=== PATIENT | male | born 2000 | race Caucasian/White ===

== ENCOUNTER 2021-01-04 16:41 | Emergency (ER) | payer SELFPAY ==
[~2021-01-04] VITALS: Ht 175.3 cm; Wt 60.0 kg
[2021-01-04 17:41] LABS: BILIRUBIN,URINE SMALL (NEG); CLARITY,URINE CLEAR; COLOR,URINE AMBER; NITRITE,URINE NEGATIVE (NEG); PH,URINE 6.5 (<5.0-8.0); PROTEIN,URINE 100 mg/dL (NEG-TRACE)
[2021-01-04] MEDS ORDERED: MORPHINE SULFATE 2 MG/ML VIAL. IV PRN (17:45)
[2021-01-04 17:49] LABS: BACTERIA,URINE 0 /HPF (0-FEW)
--- NOTE | 2021-01-04 17:56 | PHYS DOC ---
Past Medical History Additional Past Medical Histor: kidney stones (ANGELA RODRIGUEZ MD) Past Surgical History: No Surgical History (ANGELA RODRIGUEZ MD) Alcohol Use: None Drug Use: None (ANGELA RODRIGUEZ MD) General Adult EDM: Chief Complaint: ABDOMINAL PAIN HPI: HPI: 20-year-old male presenting the emergency department today with left-sided flank pain. He describes a sharp shooting pain that is been there for about 3 days. It is nonradiating without alleviating factors. He has had some hematuria. He denies nausea or vomiting. He reports normal bowel movements. He has a history of kidney stones in the past. Review of systems negative for nausea vomiting diaphoresis fevers chills. All other review of systems negative. ED course: 20-year-old male presented emerge department today with left-sided flank pain. Patient has mild left-sided abdominal pain with left-sided CVA tenderness. I was able to evaluate the patient and initiate blood work and imaging just prior to the end of my shift for the oncoming doctor to take over care. Patient was signed out with plans on following up on imaging blood work and reexamination for final disposition. (ANGELA RODRIGUEZ MD) Heart Score: C/O Chest Pain: No Risk Factors: Risk Factors: DM, Current or recent (<one month) smoker, HTN, HLP, family history of CAD, obesity. Risk Scores: Score 0 - 3: 2.5% MACE over next 6 weeks - Discharge Home Score 4 - 6: 20.3% MACE over next 6 weeks - Admit for Clinical Observation Score 7 - 10: 72.7% MACE over next 6 weeks - Early Invasive Strategies (ANGELA RODRIGUEZ MD) Current Medications: Current Medications Medications (Trade) Dose Ordered Sig/Alfredito Start Time Stop Time Status Last Admin Dose Admin Morphine Sulfate (Morphine Sulfate) 2 mg PRN Q1HR PRN 01/04/21 17:45 UNV (ANGELA RODRIGUEZ MD) Allergies: Allergies: Allergies Coded Allergies Type Severity Reaction Last Updated Verified No Known Drug Allergies 01/04/21 No (ANGELA RODRIGUEZ MD) Physical Exam: PE: Constitutional: Well developed, well nourished, no acute distress, non-toxic appearance. [] HENT: Normocephalic, atraumatic, bilateral external ears normal, oropharynx moist, no oral exudates, nose normal. [] Eyes: PERRLA, EOMI, conjunctiva normal, no discharge. [] Neck: Normal range of motion, no tenderness, supple, no stridor. [] Cardiovascular:Heart rate regular rhythm, no murmur [] Lungs & Thorax: Bilateral breath sounds clear to auscultation [] Abdomen: Bowel sounds normal, soft, mildly tender on the left without rebound tenderness or guarding. no masses, no pulsatile masses. [] Negative Roland's point. Negative Gonzalez sign. Skin: Warm, dry, no erythema, no rash. [] Back: left cva tenderness present. No tenderness midline. Extremities: No tenderness, no cyanosis, no clubbing, ROM intact, no edema. [] Neurologic: Alert and oriented X 3, normal motor function, normal sensory function, no focal deficits noted. [] Psychologic: Affect normal, judgement normal, mood normal. [] (ANGELA RODRIGUEZ MD) Current Patient Data: Vital Signs: Vital Signs Date Time Temp Pulse Resp B/P (MAP) Pulse Ox O2 Delivery O2 Flow Rate FiO2 01/04/21 17:28 98.3 105 18 116/62 (80) 97 Room Air 98.3 (ANGELA RODRIGUEZ MD) EKG: EKG: [] (ANGELA RODRIGUEZ MD) Radiology/Procedures: Radiology/Procedures: [] (ANGELA RODRIGUEZ MD) Course & Med Decision Making: Course & Med Decision Making Pertinent Labs and Imaging studies reviewed. (See chart for details) [] (ANGELA RODRIGUEZ MD) Course & Med Decision Making I assumed care o f the patient from Dr. Rodriguez at 1800. Briefly this is a 20-year-old male presenting the emergency department with concern for new onset renal stone given the patient having new onset of left-sided flank pain radiating to the left groin. Urine did demonstrate some blood in the urine and a CT scan was ordered. However I was told that the initial CT scan appears to have been inadvertently canceled through a technical error. I want to go out talk to the patient and he is stating that this time that he does not want to stay. Patient states that he previously been seen at [facility] and he was concerned that there was a 5 mm left-sided stone which they told him he needed to return for to have procedure to have it removed. Upon hearing this I explained to the patient that this could demonstrate a life-threatening illness which could threaten his left kidney secondary to obstructing stone and that the best course of action would be to obtain a CT scan and possible urology consultation. Patient refused and states that he wants to leave AGAINST MEDICAL ADVICE. Counseled the patient stating that this time I could not guarantee his safety and that he is at risk for significant injury or mortality. Patient verbalized understanding and still stated that he wished to leave AGAINST MEDICAL ADVICE (ALBERTA MENDIOLA MD) Dragon Disclaimer: Dragon Disclaimer: This electronic medical record was generated, in whole or in part, using a voice recognition dictation system. (ANGELA RODRIGUEZ MD) Departure Departure Disposition: 07 LEFT AGAINST MEDICAL ADVICE Referrals: NO PCP (PCP) ANGELA RODRIGUEZ MD Jan 04, 2021 17:56 ALBERTA MENDIOLA MD Jan 04, 2021 20:33
[2021-01-04 18:18] LABS: BASO # 0.1 x10^3/uL (0.0-0.2); BASO % 1 % (0-3); EOS # 0.1 x10^3/uL (0.0-0.7); EOS % 1 % (0-3); HEMATOCRIT 40.2 % (39.0-53.0); LYMPH # 3.7 x10^3/uL (1.0-4.8); LYMPH % 38 % (24-48); MEAN CORPUSCULAR HEMOGLOBIN 30 pg (25-35); MEAN CORPUSCULAR HGB CONC 35 g/dL (31-37); MEAN CORPUSCULAR VOLUME 85 fL (79-100); MONO # 0.9 x10^3/uL (0.0-1.1); MONO % 10 % (0-9); NEUT # 4.8 x10^3/uL (1.8-7.7); NEUT % 50 % (31-73); PLATELET COUNT 235 x10^3/uL (140-400); RED BLOOD COUNT 4.72 x10^6/uL (4.30-5.70); RED CELL DISTRIBUTION WIDTH 13.5 % (11.5-14.5); WHITE BLOOD COUNT 9.6 x10^3/uL (4.0-11.0)
[2021-01-04 18:27] LABS: CREATININE 1.1 mg/dL (0.7-1.3); GFR 84.5; POTASSIUM 3.6 mmol/L (3.5-5.1)
[2021-01-04 18:33] LABS: ALBUMIN 4.7 g/dL (3.4-5.0); DIRECT BILIRUBIN 0.2 mg/dL (0.0-0.2); TOTAL BILIRUBIN 0.9 mg/dL (0.2-1.0); TOTAL PROTEIN 7.7 g/dL (6.4-8.2)
[2021-01-04] MEDS ORDERED: MORPHINE SULFATE 4 MG/ML VIAL. IV ONE (18:45)
[2021-01-04 20:00] VITALS: BP 118/80
== END 2021-01-04 20:34 | disposition left against medical advice (07) ==
LOC: ER 16:41
DX: R10.9 Unspecified abdominal pain (principal); Z87.442 Personal history of urinary calculi
CPT/HCPCS: 36415; 80048; 80076; 81001; 83690; 85025; 87086; 96374; 99284; J2270

== ENCOUNTER 2021-03-11 03:15 | Emergency (ER) | payer SELFPAY ==
[~2021-03-11] VITALS: Ht 175.3 cm; Wt 54.5 kg
[2021-03-11 03:55] LABS: BILIRUBIN,URINE NEGATIVE (NEG); CLARITY,URINE CLEAR; COLOR,URINE YELLOW; NITRITE,URINE NEGATIVE (NEG); PH,URINE 6.5 (<5.0-8.0); PROTEIN,URINE NEGATIVE (NEG-TRACE)
[2021-03-11] MEDS ORDERED: KETOROLAC 30 MG/ML VIAL. IVP ONE (04:00)
[2021-03-11 04:04] LABS: BACTERIA,URINE 0 /HPF (0-FEW); RBC,URINE OCC /HPF (0-2); WBC,URINE >40 /HPF (0-4)
[2021-03-11 04:14] LABS: HEMATOCRIT 38.2 % (39.0-53.0); HEMOGLOBIN 12.7 g/dL (13.0-17.5); RED BLOOD COUNT 4.33 x10^6/uL (4.30-5.70); RED CELL DISTRIBUTION WIDTH 13.5 % (11.5-14.5)
--- NOTE | 2021-03-11 04:21 | PHYS DOC ---
Past Medical History Past Medical History: Kidney Stone Additional Past Medical Histor: kidney stones Past Surgical History: No Surgical History Smoking Status: Current Every Day Smoker Alcohol Use: None Drug Use: None General Adult EDM: Chief Complaint: FLANK PAIN HPI: HPI: Patient is a 21 year old male presents with a chief complaint of left flank pain. Patient states flank pain started several hours ago. Patient states he has associated urinary urgency and nausea. Denies history of kidney stones. He rates pain 10/10. Review of Systems: Review of Systems: Review of systems: Constitutional symptoms- No fever, no chills. Eyes- No Discharge, No Visual Loss Respiratory symptoms- No shortness of breath, No wheezing, No Dyspnea on Exertion Cardiovascular Systems; No chest pain, No Palpitations, No syncope Gastrointestinal symptoms: NO abdominal pain, no nausea, no vomiting or yaz rrhea. Genitourinary symptoms: No dysuria. Positive urinary urgency positive flank pain Musculoskeletal symptoms: No back pain No extremity pain. NEUROLOGICAL Symptoms: No headache, no generalized weakness; No focal Weakness Skin: No rash. Heart Score: C/O Chest Pain: N/A Risk Factors: Risk Factors: DM, Current or recent (<one month) smoker, HTN, HLP, family history of CAD, obesity. Risk Scores: Score 0 - 3: 2.5% MACE over next 6 weeks - Discharge Home Score 4 - 6: 20.3% MACE over next 6 weeks - Admit for Clinical Observation Score 7 - 10: 72.7% MACE over next 6 weeks - Early Invasive Strategies Current Medications: Current Medications Medications (Trade) Dose Ordered Sig/[facility] Start Time Stop Time Status Last Admin Dose Admin Ketorolac Tromethamine (Toradol 30mg Vial) 30 mg 1X ONCE 03/11/21 04:00 03/11/21 04:01 DC 03/11/21 03:57 30 MG Allergies: Allergies: Allergies Coded Allergies Type Severity Reaction Last Updated Verified No Known Drug Allergies 01/04/21 No Physical Exam: PE: General: alert, no acute distress. Skin: warm, dry and intact. HENT: bilateral external ears normal, oropharynx moist, nose normal. Head:: Normocephalic, atraumatic. Neck: Trachea midline. Eyes: EOMI, Normal conjunctiva, No drainage CARDIOVASCULAR: Regular rate and rhythm RESPIRATORY: No respiratory distress Back: Full range of motion. Skin: Warm, dry, no erythema, no rash. MUSCULOSKELETAL: Full range of motion of bilateral upper and lower extremities. GASTROINTESTINAL: Abdomen soft without rebound or guarding. NEUROLOGICAL: Alert and noted to person, place and time. No neurological deficits observed Psychiatric: Cooperative. Anxious Current Patient Data: Labs: Laboratory Tests Test 03/11/21 03:33 Urine Collection Type Unknown Urine Color Yellow Urine Clarity Clear Urine pH 6.5 (<5.0-8.0) Urine Specific [place] >=1.030 (1.000-1.030) Urine Protein Negative mg/dL (NEG-TRACE) Urine Glucose (UA) Negative mg/dL (NEG) Urine Ketones (Stick) Trace mg/dL (NEG) Urine Blood Negative (NEG) Urine Nitrite Negative (NEG) Urine Bilirubin Negative (NEG) Urine Urobilinogen Dipstick 1.0 mg/dL (0.2 mg/dL) Urine Leukocyte Esterase Moderate (NEG) Urine RBC Occ /HPF (0-2) Urine WBC >40 /HPF (0-4) Urine Squamous Epithelial Cells Mod /LPF Urine Bacteria 0 /HPF (0-FEW) Urine Mucus Marked /LPF Vital Signs: Vital Signs Date Time Temp Pulse Resp B/P (MAP) Pulse Ox O2 Delivery O2 Flow Rate FiO2 03/11/21 03:43 97.7 71 18 138/75 (96) 100 Room Air 97.7 EKG: EKG: [] Radiology/Procedures: Radiology/Procedures: [] Impression: EXAMINATION: CT ABDOMEN+PELVIS WO CLINICAL HISTORY: Left flank pain TECHNIQUE: Non-IV contrast imaging of the abdomen and pelvis was performed using standard technique, scanning from just above the dome of the diaphragm to the symphysis pubis. Unenhanced imaging is limited for the evaluation of some intra-abdominal and pelvic pathology. CT Dose Reduction Employed: One or more of the following individualized dose reduction techniques were utilized for this examination: 1. Automated exposure control 2. Adjustment of the mA and/or kV according to patient size 3. Use of iterative reconstruction technique. COMPARISON: None FINDINGS: Partially visualized heart and lungs unremarkable. Liver, gallbladder, pancreas, spleen, and adrenal glands unremarkable. 9 mm left renal calculus. No additional urinary calculi visualized. No evidence of obstructive uropathy. Decompressed urinary bladder suboptimally evaluated. No dilated bowel. Partially visualized nondilated appendix. No abdominal aortic or iliac artery aneurysm. No evidence of acute osseous abnormality. IMPRESSION: 9 mm left renal calculus without definitive evidence of obstructive uropathy on somewhat limited evaluation in patient with thin body habitus and lack of intravenous contrast. Electronically signed by: Pb Morin DO (03/11/2021 5:45 AM) [facility] Course & Med Decision Making: Course & Med Decision Making Pertinent Labs and Imaging studies reviewed. (See chart for details) [] Patient was evaluated for chief complaint. Work-up consisted of laboratory analysis and radiologic imaging. Patient's urine consistent with a urinary tract infection greater than 40 WBCs and positive LEs. Pain treated with Toradol. Nausea treated with Zofran. Patient received IV fluids and a gram of Rocephin. Dragon Disclaimer: Badge Disclaimer: This electronic medical record was generated, in whole or in part, using a voice recognition dictation system. Departure Departure Impression: Primary Impression: Flank pain Additional Impressions: Nausea UTI (urinary tract infection) Renal colic on left side Condition: STABLE Referrals: NO PCP (PCP) Patient Instructions: Flank Pain, Urinary Tract Infection Scripts Ciprofloxacin Hcl (CIPRO) 500 Mg Tablet 1 TAB PO BID for 10 Days, #20 TAB 0 Refills Prov: RASHARD FRANCO DO 03/11/21 Phenazopyridine Hcl (PYRIDIUM) 200 Mg Tablet 1 TAB PO TID for urinary discomfort for 2 Days, #6 TAB 0 Refills Prov: RASHARD FRANCO DO 03/11/21 RASHARD FRANCO DO Mar 11, 2021 04:21
[2021-03-11 04:29] LABS: CALCIUM 8.6 mg/dL (8.5-10.1); CREATININE 1.2 mg/dL (0.7-1.3); GFR 75.7
[2021-03-11 04:33] LABS: ALBUMIN 3.9 g/dL (3.4-5.0); ALBUMIN/GLOBULIN RATIO 1.3 (1.0-1.7); TOTAL BILIRUBIN 0.3 mg/dL (0.2-1.0); TOTAL PROTEIN 6.8 g/dL (6.4-8.2)
[2021-03-11] MEDS ORDERED: cefTRIAXone IV Push 1 GM VIAL. IVP ONE (05:00)
--- NOTE | 2021-03-11 05:48 | RAD ---
EXAMINATION: CT ABDOMEN+PELVIS WO CLINICAL HISTORY: Left flank pain TECHNIQUE: Non-IV contrast imaging of the abdomen and pelvis was performed using standard technique, scanning from just above the dome of the diaphragm to the symphysis pubis. Unenhanced imaging is cedeno ited for the evaluation of some intra-abdominal and pelvic pathology. CT Dose Reduction Employed: One or more of the following individualized dose reduction techniques wer e utilized for this examination: 1. Automated exposure control 2. Adjustment of the mA and/or kV ac cording to patient size 3. Use of iterative reconstruction technique. COMPARISON: None FINDINGS: Partially visualized heart and lungs unremarkable. Liver, gallbladder, pancreas, spleen, and adrenal glands unremarkable. 9 mm left renal calculus. No additional urinary calculi visualized. No evidence of obstructive uropat hy. Decompressed urinary bladder suboptimally evaluated. No dilated bowel. Partially visualized nondilated appendix. No abdominal aortic or iliac artery aneurysm. No evidence of acute osseous abnormality. IMPRESSION: 9 mm left renal calculus without definitive evidence of obstructive uropathy on somewhat limited eval uation in patient with thin body habitus and lack of intravenous contrast. Electronically signed by: Pb Morin DO (03/11/2021 5:45 AM) [facility]
[2021-03-11] MEDS ORDERED: PHEN-318 PO (05:52)
[2021-03-11] MEDS ORDERED: CIPR500T94 PO (05:52)
[2021-03-11 06:10] VITALS: BP 125/69
== END 2021-03-11 06:17 | disposition home or self-care (01) ==
LOC: ER 03:15
DX: N39.0 Urinary tract infection, site not specified (principal); N23 Unspecified renal colic; R11.0 Nausea
CPT/HCPCS: 36415; 74176; 80053; 81001; 85027; 87086; 96374; 96375; 99285; J0696; J1885

== ENCOUNTER 2021-08-30 22:51 | Emergency (ER) | payer SELFPAY ==
[~2021-08-30] VITALS: Ht 170.2 cm; Wt 68.1 kg
[~2021-08-30 22:51] MED LIST: CIPR500T94 PO; PHEN-318 PO
[2021-08-30 23:29] VITALS: BP 120/69
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
== END 2021-08-31 | disposition home or self-care (01) ==
LOC: ER 22:51
DX: F43.9 Reaction to severe stress, unspecified (principal); F17.200 Nicotine dependence, unspecified, uncomplicated
CPT/HCPCS: 99283